=== PATIENT | female | born 1990 | race Caucasian/White ===

== ENCOUNTER 2018-04-09 09:54 | Inpatient (IN) | payer MEDICAID ==
[2018-04-09] VITALS (7 sets, daily range): BP systolic 128–202; BP diastolic 62–160
--- NOTE | ~2018-04-09 | PR ---
[place], [place] PROGRESS NOTE NAME: DORY GONZALEZ UNIT #: [id number] ROOM: 520 DOCTOR: ZACK FERNANDEZ MD BIRTHDATE: [birth year] DOS: 04/12/2018 HISTORY OF PRESENT ILLNESS: This is a 28-year-old patient who has presented with aggressive alcohol and recreational drugs issue. The patient has been admitted with pancreatitis, confirmed a CT scan and laboratory values, today levels of lipase has dropped from 12,000-6000, 50% improvement up to yesterday and she is continuing with abdominal pain and lower back pain as expected. Report of radiologic study and labs reviewed. Records are also reviewed. White blood cell is 6.9, H and H 12 and 38. REVIEW OF SYSTEMS: HEENT: Denies double vision, blurred vision. RESPIRATORY: Denies shortness of breath. CARDIOVASCULAR: Denies chest pain. DIGESTIVE SYSTEM: No hematemesis, no hematochezia, and lower back pain. PHYSICAL EXAMINATION: VITAL SIGNS: Stable. HEENT: Within normal limits. Poor dental hygiene. NECK: Supple, no thyromegaly. CHEST: Symmetric anatomy, equal expansion. No wheeze, no rhonchi. HEART: Normal sinus rhythm, no gallop, no murmur. ABDOMEN: Soft. No hepato-organomegaly. Bowel sounds present. No pulsatile mass, tender left lower quadrant, posteriorly pain. No Coughlin Bryan. No [place] sign. EXTREMITIES: No cyanosis, no pedal edema. NEUROLOGIC: Alert and oriented to time, place, and person. No encephalopathy. No asterixis. IMPRESSION: Alcohol-induced pancreatitis. Fatty metamorphosis of the liver secondary to alcoholism. Sonographic CT scan of the abdomen has been reviewed, ____ moderate to severe diffuse hepatic steatosis, which I am sure is beginning of her cirrhotic path in future. PLAN AND DISCUSSION: Repeating LFTs, basic metabolic, amylase, and lipase tomorrow and clinical re-decision to see if we have to redo CT scan of the abdomen for her left lower quadrant and posterior back. This should be perhaps secondary to inflammatory response extending to retroperitoneum. [place], [place] PROGRESS NOTE NAME: DORY GONZALEZ UNIT #: [id number] ROOM: 520 DOCTOR: ZACK FERNANDEZ MD BIRTHDATE: [birth year] ZACK FERNANDEZ MD CM:AZUL [id number] ZACK FERNANDEZ MD 04/27/18 0722 [email or web address]
--- NOTE | ~2018-04-09 | EKG ---
[place], [place] ELECTROCARDIOGRAM REPORT NAME: DORY GONZALEZ UNIT #: [id number] ROOM: 520 DOCTOR: TOSHIA DRAFT REPORT BIRTHDATE: [birth year] [facility] Test Date: 2018-04-09 Test Time: 10:37:23 Pat Name: DORY GONZALEZ Department: Room: 520 Gender: F Manufacturing Production Manager: : 1990 Requested By: MECCA LOGAN Order Number: [id number] Reading MD: Reggie Storey MD Measurements Intervals [place] Rate: 89 P: -89 MS: 119 QRS: 60 QRSD: 82 T: -63 QT: 392 QTc: 481 Interpretive Statements Sinus or ectopic atrial rhythm Nonspecific T abnormalities, inferior leads Baseline wander in lead(s) V2 No previous ECG available for comparison Electronically Signed On 04-09-2018 15:35:43 PST by Reggie Storey MD CM:EKGRPT:ELECTROCARDIOGRAM REPORT [id number] MECCA POPE DRAFT REPORT MECCA LOGAN MD
--- NOTE | ~2018-04-09 | CON ---
[place], [place] REPORT OF CONSULTATION NAME: DORY GONZALEZ UNIT #: [id number] ROOM: 520 DOCTOR: ZACK FERNANDEZ MD BIRTHDATE: [birth year] DOS: 04/12/2018 HISTORY OF PRESENT ILLNESS: This is a 28-year-old patient who has presented with aggressive alcohol and recreational drugs issue. The patient has been admitted with pancreatitis, confirmed a CT scan and laboratory values, today levels of lipase has dropped from 12,000-6000, 50% improvement up to yesterday and she is continuing with abdominal pain and lower back pain as expected. Report of radiologic study and labs reviewed. Records are also reviewed. White blood cell is 6.9, H and H 12 and 38. REVIEW OF SYSTEMS: HEENT: Denies double vision, blurred vision. RESPIRATORY: Denies shortness of breath. CARDIOVASCULAR: Denies chest pain. DIGESTIVE SYSTEM: No hematemesis, no hematochezia, and lower back pain. PHYSICAL EXAMINATION: VITAL SIGNS: Stable. HEENT: Within normal limits. Poor dental hygiene. NECK: Supple, no thyromegaly. CHEST: Symmetric anatomy, equal expansion. No wheeze, no rhonchi. HEART: Normal sinus rhythm, no gallop, no murmur. ABDOMEN: Soft. No hepato-organomegaly. Bowel sounds present. No pulsatile mass, tender left lower quadrant, posteriorly pain. No Coughlin Bryan. No [place] sign. EXTREMITIES: No cyanosis, no pedal edema. NEUROLOGIC: Alert and oriented to time, place, and person. No encephalopathy. No asterixis. IMPRESSION: Alcohol-induced pancreatitis. Fatty metamorphosis of the liver secondary to alcoholism. Sonographic CT scan of the abdomen has been reviewed, report says moderate to severe diffuse hepatic steatosis, which I am sure is beginning of her cirrhotic path in future. PLAN AND DISCUSSION: Repeating LFTs, basic metabolic, amylase, and lipase tomorrow and clinical re-decision to see if we have to redo CT scan of the abdomen for her left lower quadrant and posterior back. This should be perhaps secondary to inflammatory response extending to retroperitoneum. [place], [place] REPORT OF CONSULTATION NAME: DORY GONZALEZ UNIT #: [id number] ROOM: 520 DOCTOR: ZACK FERNANDEZ MD BIRTHDATE: [birth year] ZACK FERNANDEZ MD CM:CONSTR:REPORT OF CONSULTATION 1631 04/27/18 0721 interface
[~2018-04-09 09:54] MED LIST: ANAPROX DS550 MG PO; CLINDAMYCIN HC300 MG PO
[2018-04-09 10:18] LABS: BASO % 0.4 % (0.0-1.0); EOS # 0.2 10*3/uL (0.0-0.4); HEMATOCRIT 44.3 % (37.0-47.0); HEMOGLOBIN 14.8 g/dl (12.0-16.0); LYMPH # 3.1 10*3/uL (1.3-4.4); LYMPH % 40.6 % (27.0-41.0); MEAN CELL VOLUME 107.5 fl (81.0-99.0); MEAN CORPUSCULAR HGB 35.9 pg (27.0-31.0); MEAN CORPUSCULAR HGB CONC 33.4 g/dl (33.0-37.0); MEAN PLATELET VOLUME 9.4 fl (9.6-12.3); MONO # 0.5 10*3/uL (0.1-1.0); MONO % 6.1 % (3.0-9.0); NEUT # 3.8 10*3/uL (2.3-7.9); NEUT % 50.4 % (47.0-73.0); PLATELET COUNT AUTOMATED 194 10*3/uL (130-400); RED BLOOD COUNT 4.12 10*6/uL (4.10-5.10); WHITE BLOOD COUNT 7.6 10*3/uL (4.8-10.8)
[2018-04-09 10:28] LABS: ACT PARTIAL THROMBO TIME 21.5 SECONDS (20.8-31.5); INTERNATIONAL NORM RATIO 0.9 (2.0-3.5)
[2018-04-09 10:33] LABS: BILIRUBIN NEGATIVE (NEGATIVE); BLOOD NEGATIVE (NEGATIVE); CLARITY SL CLOUDY (CLEAR); COLOR YELLOW (YELLOW); GLUCOSE NEGATIVE (NEGATIVE); KETONE NEGATIVE (NEGATIVE); LEUKO ESTERASE NEGATIVE (NEGATIVE); NITRITE NEGATIVE (NEGATIVE); UROBILINOGEN 0.2 E.U./dl (0.2-1.0)
[2018-04-09 10:35] LABS: ALBUMIN 3.5 gm/dl (3.1-4.5); ALKALINE PHOSPHATASE 135 U/L (45-117); BUN 7 mg/dl (7-24); CHLORIDE 103 mmol/L (98-107); CREATININE 0.85 mg/dL (0.55-1.02); SGOT/AST 530 IU/L (3-35); SGPT/ALT 203 U/L (12-78); SODIUM 142 mmol/L (136-145); TOTAL PROTEIN 7.6 gm/dL (6.4-8.2)
[2018-04-09 10:42] LABS: BACTERIA TRACE; MUCOUS 2+
[2018-04-09 10:43] LABS: LIPASE 10011 U/L (73-393)
[2018-04-09 11:31] LABS: URINE AMPHETAMINES < 1000 (1000ng/ml); URINE BARBITURATES < 200 (200ng/ml); URINE BENZODIAZEPINES < 200 (200ng/ml); URINE CANNABINOIDS (THC) > 50 (50ng/ml); URINE COCAINE < 300 (300ng/ml); URINE METHADONE < 300 (300ng/ml); URINE OPIATES < 300 (300ng/ml); URINE PHENCYCLIDINE < 25 (25ng/ml)
[2018-04-10] VITALS: BP 139/93
[2018-04-10 06:46] LABS: HEMATOCRIT 45.3 % (37.0-47.0); MEAN CELL VOLUME 110.2 fl (81.0-99.0); MEAN CORPUSCULAR HGB 36.5 pg (27.0-31.0); MEAN CORPUSCULAR HGB CONC 33.1 g/dl (33.0-37.0); MEAN PLATELET VOLUME 10.1 fl (9.6-12.3); RED BLOOD COUNT 4.11 10*6/uL (4.10-5.10); RED CELL DISTRI WIDTH 12.8 % (0-14.5)
[2018-04-10 07:15] LABS: PLATELET COUNT AUTOMATED 126 10*3/uL (130-400)
[2018-04-10 07:22] LABS: BUN 6 mg/dl (7-24); CHLORIDE 103 mmol/L (98-107); CHOLESTEROL 204 mg/dL (<200); SGOT/AST 227 IU/L (3-35); SODIUM 137 mmol/L (136-145); TOTAL PROTEIN 6.2 gm/dL (6.4-8.2); TRIGLYCERIDES 56 mg/dl (<150); VLDL CHOLESTEROL 11 mg/dL (6-40)
[2018-04-10 07:27] LABS: ALKALINE PHOSPHATASE 110 U/L (45-117); CREATININE 0.52 mg/dL (0.55-1.02); HDL CHOLESTEROL 106 mg/dl (40-60); LDL CHOLESTEROL 87 mg/dL (9-159); LIPASE 15234 U/L (73-393); PHOSPHOROUS 2.7 mg/dL (2.5-4.9); POTASSIUM 4.1 mmol/L (3.5-5.1); SGPT/ALT 128 U/L (12-78)
[2018-04-10 07:34] LABS: INTERNATIONAL NORM RATIO 1.1 (2.0-3.5)
[2018-04-10 08:00] VITALS: BP 128/82
[2018-04-10 08:04] LABS: TOTAL CELLS COUNTED 100 #CELLS
[2018-04-10 08:05] LABS: PLATELET SUFFICIENCY NORMAL (NORMAL)
[2018-04-10 08:06] LABS: VITAMIN D, 25-HYDROXY 5.7 ng/mL (30-100)
[2018-04-10 12:00] VITALS: BP 137/96
[2018-04-10 16:00] VITALS: BP 119/85
[2018-04-10 20:00] VITALS: BP 133/94
[2018-04-11] VITALS: BP 113/81
[2018-04-11 06:46] LABS: HEMATOCRIT 43.5 % (37.0-47.0); HEMOGLOBIN 14.6 g/dl (12.0-16.0); MEAN CELL VOLUME 109.3 fl (81.0-99.0); MEAN CORPUSCULAR HGB 36.7 pg (27.0-31.0); MEAN CORPUSCULAR HGB CONC 33.6 g/dl (33.0-37.0); MEAN PLATELET VOLUME 10.9 fl (9.6-12.3); PLATELET COUNT AUTOMATED 100 10*3/uL (130-400); RED BLOOD COUNT 3.98 10*6/uL (4.10-5.10); RED CELL DISTRI WIDTH 12.9 % (0-14.5); WHITE BLOOD COUNT 7.5 10*3/uL (4.8-10.8)
[2018-04-11 07:05] LABS: ALBUMIN 2.6 gm/dl (3.1-4.5); ALKALINE PHOSPHATASE 106 U/L (45-117); BUN 3 mg/dl (7-24); CHLORIDE 100 mmol/L (98-107); CREATININE 0.57 mg/dL (0.55-1.02); POTASSIUM 3.7 mmol/L (3.5-5.1); SGOT/AST 126 IU/L (3-35); SGPT/ALT 83 U/L (12-78); SODIUM 136 mmol/L (136-145); TOTAL PROTEIN 5.8 gm/dL (6.4-8.2)
[2018-04-11 07:10] LABS: LIPASE 6294 U/L (73-393)
[2018-04-11 07:37] LABS: PLATELET SUFFICIENCY LOW (NORMAL); TOTAL CELLS COUNTED 100 #CELLS
[2018-04-11 08:00] VITALS: BP 116/80
[2018-04-11 12:00] VITALS: BP 117/78
[2018-04-11 16:00] VITALS: BP 118/80
[2018-04-11 20:00] VITALS: BP 115/83
[2018-04-12] VITALS: BP 130/82
[2018-04-12 07:11] LABS: HEMATOCRIT 38.6 % (37.0-47.0); HEMOGLOBIN 12.6 g/dl (12.0-16.0); MEAN CELL VOLUME 110.3 fl (81.0-99.0); MEAN CORPUSCULAR HGB CONC 32.6 g/dl (33.0-37.0); PLATELET COUNT AUTOMATED 93 10*3/uL (130-400); RED CELL DISTRI WIDTH 12.7 % (0-14.5); WHITE BLOOD COUNT 6.9 10*3/uL (4.8-10.8)
[2018-04-12 07:17] VITALS: BP 140/86
[2018-04-12 07:20] LABS: BUN 2 mg/dl (7-24); CHLORIDE 103 mmol/L (98-107); POTASSIUM 3.6 mmol/L (3.5-5.1); SODIUM 138 mmol/L (136-145)
[2018-04-12 07:21] LABS: CREATININE 0.48 mg/dL (0.55-1.02)
[2018-04-12 08:43] LABS: PLATELET SUFFICIENCY NORMAL (NORMAL); TOTAL CELLS COUNTED 100 #CELLS
[2018-04-12 12:00] VITALS: BP 120/86
[2018-04-12 16:00] VITALS: BP 131/89
[2018-04-12 20:00] VITALS: BP 137/95
[2018-04-12 20:35] VITALS: BP 122/68
[2018-04-13 06:52] LABS: ALBUMIN 1.9 gm/dl (3.1-4.5); ALKALINE PHOSPHATASE 94 U/L (45-117); BILIRUBIN, DIRECT 0.6 mg/dL (0.0-0.2); BUN 2 mg/dl (7-24); CHLORIDE 107 mmol/L (98-107); CREATININE 0.36 mg/dL (0.55-1.02); LIPASE 855 U/L (73-393); SGOT/AST 38 IU/L (3-35); SGPT/ALT 40 U/L (12-78); SODIUM 138 mmol/L (136-145); TOTAL PROTEIN 5.2 gm/dL (6.4-8.2)
[2018-04-13 06:55] LABS: BASO % 0.3 % (0.0-1.0); EOS # 0.1 10*3/uL (0.0-0.4); EOS % 1.3 % (1.0-4.0); HEMATOCRIT 34.2 % (37.0-47.0); HEMOGLOBIN 11.7 g/dl (12.0-16.0); LYMPH # 0.6 10*3/uL (1.3-4.4); LYMPH % 9.6 % (27.0-41.0); MEAN CELL VOLUME 107.2 fl (81.0-99.0); MEAN CORPUSCULAR HGB 36.7 pg (27.0-31.0); MEAN CORPUSCULAR HGB CONC 34.2 g/dl (33.0-37.0); MEAN PLATELET VOLUME 10.1 fl (9.6-12.3); MONO % 15.1 % (3.0-9.0); NEUT # 4.9 10*3/uL (2.3-7.9); NEUT % 73.1 % (47.0-73.0); PLATELET COUNT AUTOMATED 137 10*3/uL (130-400); RED BLOOD COUNT 3.19 10*6/uL (4.10-5.10); RED CELL DISTRI WIDTH 12.3 % (0-14.5); WHITE BLOOD COUNT 6.7 10*3/uL (4.8-10.8)
[2018-04-13 08:18] LABS: PHOSPHOROUS 1.5 mg/dL (2.5-4.9)
[2018-04-13 12:00] VITALS: BP 135/91
[2018-04-13 16:00] VITALS: BP 130/91
[2018-04-13 20:00] VITALS: BP 133/82
[2018-04-14] VITALS: BP 131/88
[2018-04-14 07:24] LABS: ALBUMIN 2.1 gm/dl (3.1-4.5); CHLORIDE 104 mmol/L (98-107); CREATININE 0.45 mg/dL (0.55-1.02); LIPASE 1129 U/L (73-393); PHOSPHOROUS 1.6 mg/dL (2.5-4.9); POTASSIUM 2.7 mmol/L (3.5-5.1); SGOT/AST 46 IU/L (3-35); SODIUM 140 mmol/L (136-145); TOTAL PROTEIN 5.6 gm/dL (6.4-8.2)
[2018-04-14 07:25] LABS: ALKALINE PHOSPHATASE 101 U/L (45-117); SGPT/ALT 39 U/L (12-78)
[2018-04-14 07:29] LABS: BUN < 1 mg/dl (7-24)
[2018-04-14 07:39] LABS: BASO % 0.2 % (0.0-1.0); EOS # 0.1 10*3/uL (0.0-0.4); HEMATOCRIT 35.3 % (37.0-47.0); HEMOGLOBIN 12.3 g/dl (12.0-16.0); LYMPH # 0.8 10*3/uL (1.3-4.4); LYMPH % 13.5 % (27.0-41.0); MEAN CORPUSCULAR HGB 36.9 pg (27.0-31.0); MEAN CORPUSCULAR HGB CONC 34.8 g/dl (33.0-37.0); MEAN PLATELET VOLUME 9.9 fl (9.6-12.3); MONO # 1.1 10*3/uL (0.1-1.0); MONO % 17.5 % (3.0-9.0); NEUT # 4.1 10*3/uL (2.3-7.9); NEUT % 67.2 % (47.0-73.0); RED BLOOD COUNT 3.33 10*6/uL (4.10-5.10); RED CELL DISTRI WIDTH 12.5 % (0-14.5); WHITE BLOOD COUNT 6.2 10*3/uL (4.8-10.8)
[2018-04-14 07:42] LABS: PLATELET COUNT AUTOMATED 204 10*3/uL (130-400)
[2018-04-14 08:00] VITALS: BP 124/80
[2018-04-14] MEDS ORDERED: HYDROCODONE-AC1 EAC1 PO (13:16)
== END 2018-04-14 13:46 | disposition home or self-care (01) | DRG 439 ==
LOC: ED 09:54 → EDHOLD 11:29 → 5E 11:29
PROVIDERS: Emergency Medicine; Family Medicine; Internal Medicine; Internal Medicine Gastroenterology; Student in an Organized Health Care Education/Training Program; ADMIT Internal Medicine
DX: K85.20 Alcohol induced acute pancreatitis without necrosis or infection (principal); E87.2 Acidosis; F17.200 Nicotine dependence, unspecified, uncomplicated; K76.0 Fatty (change of) liver, not elsewhere classified; D75.89 Other specified diseases of blood and blood-forming organs; E87.6 Hypokalemia; Z71.6 Tobacco abuse counseling; Z90.49 Acquired absence of other specified parts of digestive tract; Z82.49 Family history of ischemic heart disease and other diseases of the circulatory system; Z83.438 Family history of other disorder of lipoprotein metabolism and other lipidemia; Y90.7 Blood alcohol level of 200-239 mg/100 ml; F10.220 Alcohol dependence with intoxication, uncomplicated

== ENCOUNTER 2024-03-12 18:23 | Inpatient (IN) | payer SELFPAY ==
[~2024-03-12] VITALS: Ht 162.5 cm; Wt 69.9 kg
[~2024-03-12 18:23] MED LIST changes: +HYDROCODONE-AC1 EAC1 PO
[2024-03-12 18:34] VITALS: BP 142/119
[2024-03-12] MEDS ORDERED: SODIUM CHLORIDE 0.9% 1,000 ML IV ONE (20:05)
[2024-03-12] MEDS ORDERED: Thiamine 200 MG/2 ML VIAL IV ONE (20:05)
[2024-03-12 20:13] LABS: BASO % 0.6 % (0.0-1.0); EOS # 0.3 10*3/uL (0.0-0.4); EOS % 3.9 % (1.0-4.0); HEMATOCRIT 47.9 % (37.0-47.0); MEAN CELL VOLUME 101.9 fl (81.0-99.0); MEAN CORPUSCULAR HGB 34.9 pg (27.0-31.0); MEAN CORPUSCULAR HGB CONC 34.2 g/dl (33.0-37.0); MEAN PLATELET VOLUME 9.4 fl (9.6-12.3); MONO # 0.5 10*3/uL (0.1-1.0); MONO % 7.4 % (3.0-9.0); NEUT # 3.7 10*3/uL (2.3-7.9); NEUT % 53.1 % (47.0-73.0); PLATELET COUNT AUTOMATED 313 10*3/uL (130-400); RED CELL DISTRI WIDTH 11.9 % (0-14.5)
[2024-03-12 20:39] LABS: ALKALINE PHOSPHATASE 80 U/L (46-116); BUN 8 mg/dl (9-23); CHLORIDE 105 mmol/L (98-107); ETHYL ALCOHOL 128.8 mg/dl (<3); SGPT/ALT 40 U/L (5-49); TOTAL PROTEIN 7.4 gm/dL (6.0-8.0)
[2024-03-12] MEDS ORDERED: Ondansetron Hydrochloride 4 MG/2 ML VIAL IV ONE (20:50)
[2024-03-12] MEDS ORDERED: DIAZEPAM 10 MG/2 ML SYR IV ONE (20:55)
[2024-03-12] MEDS ORDERED: LORazepam 1 MG TAB PO ONE (22:30)
[2024-03-12] MEDS ORDERED: ACETAMINOPHEN 650 MG SUPP R PRN (23:20)
[2024-03-12] MEDS ORDERED: BISACODYL 10 MG SUPP R PRN (23:20)
[2024-03-12] MEDS ORDERED: METHOCARBAMOL 750 MG TAB PO PRN (23:20)
[2024-03-12] MEDS ORDERED: hydrOXYzine 50 MG CAP PO PRN (23:20)
[2024-03-12] MEDS ORDERED: ACETAMINOPHEN 325 MG TAB PO PRN (23:20)
[2024-03-12] MEDS ORDERED: BISACODYL 5 MG TAB PO PRN (23:20)
[2024-03-12] MEDS ORDERED: MAGNESIUM SULFATE 100 ML IV ONE (23:20)
[2024-03-12] MEDS ORDERED: FOLIC ACID 1 MG TAB PO ONE (23:20)
[2024-03-12] MEDS ORDERED: Magnesium Hydroxide 30 ML UDC PO PRN (23:20)
[2024-03-12] MEDS ORDERED: Dicyclomine Hydrochloride 20 MG TAB PO PRN (23:20)
[2024-03-12] MEDS ORDERED: Ondansetron Hydrochloride 4 MG/2 ML VIAL IV PRN (23:20)
[2024-03-12] MEDS ORDERED: Nicotine 21 MG PATCH T PRN (23:25)
[2024-03-12] MEDS ORDERED: MG-AL HYDROXIDE/SIMETICONE 30 ML UDC PO PRN (23:25)
[2024-03-12] MEDS ORDERED: Ondansetron Hydrochloride 4 MG TAB PO PRN (23:25)
[2024-03-12] MEDS ORDERED: Sennosides A and B 8.6 MG TAB PO PRN (23:25)
[2024-03-12] MEDS ORDERED: IBUPROFEN 600 MG TAB PO PRN (23:25)
[2024-03-12] MEDS ORDERED: Loperamide Hydrochloride 2 MG CAP PO PRN ×2 (23:25)
[2024-03-12 23:44] LABS: BETA-HCG, QUANT < 3.0 mIU/mL (3-10); LIPASE 20 U/L (12-53)
[2024-03-12 23:56] LABS: BILIRUBIN Negative (Negative); BLOOD Negative (Negative); CLARITY Cloudy (Clear); COLOR Yellow (Yellow); GLUCOSE Negative (Negative); KETONE Negative (Negative); LEUKO ESTERASE Negative (Negative); NITRITE Negative (Negative); PH 5.5 (4.5-8.0); SPECIFIC GRAVITY 1.015 (1.001-1.030); UROBILINOGEN 0.2 E.U./dl (0.0-1.0)
[2024-03-13] MEDS ORDERED: LORazepam 1 MG TAB PO SCH
[2024-03-13 00:10] LABS: BACTERIA 4+; EPITHELIAL CELLS 41-50
[2024-03-13 00:15] VITALS: BP 125/81
[2024-03-13 05:19] LABS: ALKALINE PHOSPHATASE 68 U/L (46-116); BUN 10 mg/dl (9-23); CHLORIDE 102 mmol/L (98-107); CHOLESTEROL 181 mg/dL (<200); FREE T4 1.23 ng/dl (0.89-1.76); LDL CHOLESTEROL 72 mg/dL (9-159); POTASSIUM 4.2 mmol/L (3.4-5.1); SGPT/ALT 33 U/L (5-49); TOTAL PROTEIN 6.3 gm/dL (6.0-8.0); TRIGLYCERIDES 57 mg/dl (<150)
[2024-03-13] MEDS ORDERED: Thiamine 200 MG/2 ML VIAL IV SCH (06:00)
[2024-03-13 06:16] LABS: BASO % 0.4 % (0.0-1.0); EOS # 0.3 10*3/uL (0.0-0.4); EOS % 3.6 % (1.0-4.0); HEMATOCRIT 43.6 % (37.0-47.0); MEAN CELL VOLUME 104.3 fl (81.0-99.0); MEAN CORPUSCULAR HGB 34.7 pg (27.0-31.0); MEAN CORPUSCULAR HGB CONC 33.3 g/dl (33.0-37.0); MEAN PLATELET VOLUME 10.3 fl (9.6-12.3); MONO # 0.8 10*3/uL (0.1-1.0); NEUT # 4.1 10*3/uL (2.3-7.9); NEUT % 49.1 % (47.0-73.0); PLATELET COUNT AUTOMATED 284 10*3/uL (130-400); RED BLOOD COUNT 4.18 10*6/uL (4.10-5.10); RED CELL DISTRI WIDTH 11.9 % (0-14.5); WHITE BLOOD COUNT 8.3 10*3/uL (4.8-10.8)
[2024-03-13 06:31] LABS: ACT PARTIAL THROMBO TIME 27.9 SECONDS (20.0-32.1)
[2024-03-13 06:40] VITALS: BP 119/83
[2024-03-13 07:35] LABS: VITAMIN D, 25-HYDROXY 8.8 ng/mL (30-100)
[2024-03-13 08:00] VITALS: BP 104/62
[2024-03-13 09:12] LABS: URINE AMPHETAMINES Negative (1000ng/ml); URINE BARBITURATES Negative (200ng/ml); URINE BENZODIAZEPINES Negative (200ng/ml); URINE CANNABINOIDS (THC) Positive (50ng/ml); URINE COCAINE Negative (300ng/ml); URINE METHADONE Negative (300ng/ml); URINE OPIATES Negative (300ng/ml); URINE PHENCYCLIDINE Negative (25ng/ml)
[2024-03-13] MEDS ORDERED: Albuterol Sulf/Ipratropium 3 ML VIAL NEB SCH (09:20)
[2024-03-13] MEDS ORDERED: MULTIVITAMIN 1 TAB TAB PO SCH (10:00)
[2024-03-13] MEDS ORDERED: Enoxaparin Sodium 40 MG/0.4 ML SYR SC SCH (10:00)
[2024-03-13] MEDS ORDERED: Cholecalciferol 2,000 UNIT TABLET (50 MCG) PO SCH (10:00)
[2024-03-13] MEDS ORDERED: AZITHROMYCIN 250 ML IV SCH (10:00)
[2024-03-13] MEDS ORDERED: Ceftriaxone Sodium 1 GM in SYRINGE INFUSION 10 ML IV SCH (10:00)
[2024-03-13 11:14] VITALS: BP 111/64
[2024-03-13] MEDS ORDERED: Pneumococcal Vaccine Polyval 0.5 ML SYR IM ONE (14:00)
[2024-03-13 17:00] VITALS: BP 130/60
[2024-03-13 20:00] VITALS: BP 111/80
[2024-03-14] VITALS: BP 108/74
[2024-03-14] MEDS ORDERED: LORazepam 1 MG TAB PO SCH (02:00)
[2024-03-14 06:19] LABS: BASO # 0.1 10*3/uL (0.0-0.1); BASO % 0.8 % (0.0-1.0); EOS # 0.3 10*3/uL (0.0-0.4); EOS % 4.7 % (1.0-4.0); HEMATOCRIT 43.6 % (37.0-47.0); MEAN CELL VOLUME 106.6 fl (81.0-99.0); MEAN CORPUSCULAR HGB CONC 32.8 g/dl (33.0-37.0); MEAN PLATELET VOLUME 10.3 fl (9.6-12.3); MONO # 0.6 10*3/uL (0.1-1.0); MONO % 9.9 % (3.0-9.0); NEUT # 2.9 10*3/uL (2.3-7.9); NEUT % 46.5 % (47.0-73.0); PLATELET COUNT AUTOMATED 222 10*3/uL (130-400); RED BLOOD COUNT 4.09 10*6/uL (4.10-5.10); RED CELL DISTRI WIDTH 11.9 % (0-14.5); WHITE BLOOD COUNT 6.2 10*3/uL (4.8-10.8)
[2024-03-14 06:36] LABS: BUN 8 mg/dl (9-23); CHLORIDE 106 mmol/L (98-107); POTASSIUM 4.4 mmol/L (3.4-5.1)
[2024-03-14 08:00] VITALS: BP 106/70
[2024-03-14] MEDS ORDERED: ZITHROMAX250 MG PO (11:02)
[2024-03-14 12:00] VITALS: BP 92/55
[2024-03-15] MEDS ORDERED: LORazepam 1 MG TAB PO PRN
== END 2024-03-14 12:54 | disposition home or self-care (01) | DRG 178 ==
LOC: ED 18:23 → 4E 22:44 → EDHOLD 22:44 → 4E 03-13 12:36
PROVIDERS: Internal Medicine; ADMIT Family Medicine; ATTEND Family Medicine
DX: J69.0 Pneumonitis due to inhalation of food and vomit (principal); F10.939 Alcohol use, unspecified with withdrawal, unspecified; N30.00 Acute cystitis without hematuria; D75.89 Other specified diseases of blood and blood-forming organs; R74.01 Elevation of levels of liver transaminase levels; R73.9 Hyperglycemia, unspecified; D75.1 Secondary polycythemia; F17.210 Nicotine dependence, cigarettes, uncomplicated; Z82.49 Family history of ischemic heart disease and other diseases of the circulatory system; Z71.6 Tobacco abuse counseling

== ENCOUNTER 2024-10-04 18:51 | Observation (INO) | payer OTHER ==
[~2024-10-04] VITALS: Wt 60.8 kg
[~2024-10-04 18:51] MED LIST changes: +ZITHROMAX250 MG PO
[2024-10-04] MEDS ORDERED: Albuterol Sulf/Ipratropium 3 ML VIAL NEB ONE ×2 (19:05)
[2024-10-04 19:08] VITALS: BP 139/102
[2024-10-04] MEDS ORDERED: diazePAM 10 MG/2 ML SYR IV ONE (19:10)
[2024-10-04 19:29] LABS: BASO # 0.0 10*3/uL (0.0-0.1); BASO % 0.2 % (0.0-1.0); EOS # 1.2 10*3/uL (0.0-0.4); EOS % 7.0 % (1.0-4.0); MEAN CELL VOLUME 102.9 fl (81.0-99.0); MEAN CORPUSCULAR HGB 35.4 pg (27.0-31.0); MEAN PLATELET VOLUME 10.4 fl (9.6-12.3); MONO # 0.8 10*3/uL (0.1-1.0); MONO % 4.9 % (3.0-9.0); NEUT # 11.9 10*3/uL (2.3-7.9); NEUT % 71.2 % (47.0-73.0); NUCLEATED RED BLOOD CELL 0.0 % (0.0-0.0); NUCLEATED RED BLOOD CELL 0.0 10*3/uL (0.0-0.0); PLATELET COUNT AUTOMATED 300 10*3/uL (130-400); RED CELL DISTRI WIDTH 12.0 % (0-14.5)
[2024-10-04 19:30] LABS: VENOUS BLOOD GAS O2 SAT 86.1 % (60.0-85.0)
[2024-10-04] MEDS ORDERED: MAGNESIUM SULFATE 50 ML IV ONE (19:35)
[2024-10-04 19:56] LABS: BUN 8 mg/dl (9-23); SGPT/ALT 21 U/L (5-49)
[2024-10-04] MEDS ORDERED: Ketamine Hydrochloride 500 MG/10 ML VIAL IV ONE (20:30)
[2024-10-04 20:50] VITALS: BP 144/122
[2024-10-04] MEDS ORDERED: Racepinephrine Hydrochloride 0.5 ML AMP NEB ONE (20:50)
[2024-10-04] MEDS ORDERED: PROPOFOL 50 ML IV SCH (22:00)
[2024-10-04] MEDS ORDERED: PROPOFOL 100 ML IV ONE (22:00)
[2024-10-04 22:35] VITALS: BP 107/73
[2024-10-04 23:16] VITALS: BP 115/72
[2024-10-04] MEDS ORDERED: fentaNYL CITRATE 1,000 MCG in SODIUM CHLORIDE 0.9% 230 ML IV SCH (23:30)
[2024-10-04] MEDS ORDERED: fentaNYL CITRATE 1,000 MCG/20 ML VIAL IV ONE (23:55)
[2024-10-05] VITALS (12 sets, daily range): BP systolic 87–130; BP diastolic 60–85
[2024-10-05] MEDS ORDERED: PROPOFOL 100 ML IV ONE (05:34)
[2024-10-05 08:00] LABS: MEAN CELL VOLUME 103.8 fl (81.0-99.0); MEAN CORPUSCULAR HGB 35.0 pg (27.0-31.0); MEAN PLATELET VOLUME 10.6 fl (9.6-12.3); NUCLEATED RED BLOOD CELL 0.0 % (0.0-0.0); NUCLEATED RED BLOOD CELL 0.0 10*3/uL (0.0-0.0); PLATELET COUNT AUTOMATED 247 10*3/uL (130-400); RED CELL DISTRI WIDTH 11.9 % (0-14.5)
[2024-10-05 08:35] LABS: ABG O2 SATURATION 100.0 % (94.0-98.0); ARTERIAL BLOOD GAS PH 7.328 (7.350-7.450)
[2024-10-05 08:40] LABS: ABG BASE EXCESS -4.1 mmol/L (-2.0-3.0)
[2024-10-05 08:42] LABS: ARTERIAL BLOOD GAS PO2 404.8 mmHg (83.0-108.0)
[2024-10-05 09:05] LABS: MANUAL DIFF REFLEX YES
[2024-10-05 09:08] LABS: PLATELET SUFFICIENCY NORMAL (NORMAL)
[2024-10-05] MEDS ORDERED: ROCURONIUM BROMIDE 50 MG/5 ML SYRINGE IV ONE (09:12)
[2024-10-05] MEDS ORDERED: PROPOFOL 200 MG/20 ML VIAL IV ONE (09:12)
[2024-10-05] MEDS ORDERED: AZITHROMYCIN 250 ML IV ONE (09:15)
[2024-10-05 09:34] LABS: BUN 9 mg/dl (9-23); SGPT/ALT 16 U/L (5-49)
[2024-10-05 11:14] LABS: URINE AMPHETAMINES Negative (1000ng/ml); URINE BARBITURATES Negative (200ng/ml); URINE BENZODIAZEPINES Positive (200ng/ml); URINE CANNABINOIDS (THC) Positive (50ng/ml); URINE COCAINE Negative (300ng/ml); URINE METHADONE Negative (300ng/ml); URINE OPIATES Positive (300ng/ml); URINE PHENCYCLIDINE Negative (25ng/ml)
[2024-10-05 12:05] LABS: ABG BASE EXCESS -0.7 mmol/L (-2.0-3.0); ABG O2 SATURATION 94.7 % (94.0-98.0); ARTERIAL BLOOD GAS PH 7.332 (7.350-7.450); ARTERIAL BLOOD GAS PO2 78.3 mmHg (83.0-108.0)
== END 2024-10-05 12:45 | disposition short-term general hospital (02) ==
LOC: ED 18:51 → EDHOLD 10-05 07:09
PROVIDERS: Emergency Medicine; Internal Medicine; ADMIT Internal Medicine; ATTEND Internal Medicine
DX: A41.9 Sepsis, unspecified organism (principal); J18.9 Pneumonia, unspecified organism; J96.01 Acute respiratory failure with hypoxia; J96.02 Acute respiratory failure with hypercapnia; R73.9 Hyperglycemia, unspecified; F10.939 Alcohol use, unspecified with withdrawal, unspecified; G93.41 Metabolic encephalopathy; Z79.899 Other long term (current) drug therapy